=== PATIENT | female | born 1950 | race Hispanic/Latino ===

== ENCOUNTER → 2017-08-03 | Day surgery (SDC) | payer MEDICARE, OTHER ==
[2017-08-02 14:59] LABS: BASOPHILS % 0.6 % (0.0-1.0); EOSINOPHILS # (AUTO) 0.1 (0.0-0.4); HEMATOCRIT 38.5 % (34.2-44.1); HEMOGLOBIN 13.5 g/dL (12.0-16.0); LYMPHOCYTES # (AUTO) 1.6 (1.0-3.2); LYMPHOCYTES % 23.2 % (18.0-39.1); MEAN CORPUSCULAR HEMOGLOBIN 31.6 pg (28-32); MEAN CORPUSCULAR HGB CONC 35.1 g/dL (31-35); MEAN CORPUSCULAR VOLUME 90.2 fL (81-99); MONOCYTES # (AUTO) 0.3 (0.2-0.8); MONOCYTES % 4.9 % (4.4-11.3); NEUTROPHILS # (AUTO) 4.9 (2.1-6.9); PLATELET COUNT 180 x10e3/uL (140-360); RED BLOOD COUNT 4.27 x10e6/uL (3.6-5.1)
[~2017-08-03] MED LIST: ATORVASTATIN CA20 MG PO; FENOFIBRATE145 MG PO; FENTANYL CITRATE/PF 100MCG/2 ML INJ ONE; GLUCOVANCE 5-51 EACH PO; KETOROLAC TROME10 MG PO; LEXAPRO10 MG PO; LIDOCAINE HCL 2% LOCAL INJ 5 ML SDV VIAL INJ ONE; LISINOPRIL10 MG PO; LORAZEPAM0.5 MG PO; MIDAZOLAM HCL 2 MG/2 ML VIAL ONE; PROPOFOL IV EMULSION 10 MG/ML 50 ML VIAL ONE; TENORETIC 50 T1 EACH PO
== END | disposition home or self-care (01) ==
LOC: OR 06:52
PROVIDERS: ATTEND Internal Medicine Gastroenterology
DX: Z12.11 Encounter for screening for malignant neoplasm of colon (principal); K29.50 Unspecified chronic gastritis without bleeding; K57.30 Diverticulosis of large intestine without perforation or abscess without bleeding; K44.9 Diaphragmatic hernia without obstruction or gangrene; K64.8 Other hemorrhoids; E11.9 Type 2 diabetes mellitus without complications; I10 Essential (primary) hypertension; E78.5 Hyperlipidemia, unspecified; F32.9 Major depressive disorder, single episode, unspecified; Z01.812 Encounter for preprocedural laboratory examination; Z01.810 Encounter for preprocedural cardiovascular examination
CPT/HCPCS: 43239; G0121; 36415; 45378; 82948; 85025; 93005; J2001; J2250

== ENCOUNTER → 2017-12-13 | Outpatient (CLI) | payer MEDICARE, OTHER ==
[~2017-12-13] MED LIST changes: -FENTANYL CITRATE/PF 100MCG/2 ML INJ ONE; -LIDOCAINE HCL 2% LOCAL INJ 5 ML SDV VIAL INJ ONE; -MIDAZOLAM HCL 2 MG/2 ML VIAL ONE; -PROPOFOL IV EMULSION 10 MG/ML 50 ML VIAL ONE
--- NOTE | 2017-12-13 19:16 | Diagnostic Imaging Report ---
Solid-phase gastric emptying study Reason for examination: 67 F with chronic bloating The protocol used for this study is based on the Consensus Recommendations for Gastric Scintigraphy by the [place] [employer] and the Society of Nuclear Medicine. Clinical information: The patient is diabetic. Blood sugar this morning was 240 mg/dL. The patient has not had previous gastrointestinal surgery other than cholecystectomy in 2002. The patient is not on any medications expected to affect gastric motility. The patient has been fasting for at least 6 hours prior to this exam. Radiopharmaceutical: Tc-99m sulfur colloid 1 mCi Report: The radiopharmaceutical was added to 1/2 cup egg whites that were then prepared and served with 2 pieces of white bread toasted, 30 grams of jam and 4 ounces of water. The patient took the meal orally without difficulty. Images were obtained of the abdomen in the anterior and posterior projections at 10 minutes post the meal and at 1and 2 hours. Uptake was determined from the geometric mean of the anterior and posterior counts and the counts were corrected for decay of the radiolabel. The percent gastric retention of the labeled meal at: 1 hour was 60% (normal 30-90%) 2 hours was 32% (normal <60%; if less than 35% at 2 hours, study is normal) 3-hour and 4-hour measurements were not obtained because the gastric retention was less than 35% at 2 hours. Impression: The pattern of gastric emptying is normal. Scan findings do not support the clinical diagnosis of gastroparesis. Signed by: Dr. Lisa Main M.D. on 12/13/2017 7:12 PM
== END ==
LOC: NM 08:18
PROVIDERS: ATTEND Internal Medicine Gastroenterology
DX: R10.13 Epigastric pain (principal); R14.0 Abdominal distension (gaseous); I10 Essential (primary) hypertension; E66.3 Overweight; Z71.3 Dietary counseling and surveillance
CPT/HCPCS: 78264; A9541

== ENCOUNTER 2017-12-25 20:29 | Emergency (ER) | payer MEDICARE, OTHER ==
--- OUTSIDE RECORDS SUMMARY | 2017-12-25 20:32 | XMS REPORT ---
Author Author [facility] Address Unknown Phone Unavailable Care Team Providers Care Hand Spinner Name Role Phone SERGIO AGUILERA Unavailable Unavailable URIBERAISAHEJAI Unavailable Unavailable Problems This patient has no known problems. Allergies, Adverse Reactions, Alerts This patient has no known allergies or adverse reactions. Medications This patient has no known medications. Results Test Description Test Time Test Comments Text Results Atomic Results Result Comments GASTRIC EMPTYING [place] [address] Patient Name: ERICA MAGALLANES MR #: [id number] : 1950 Age/Sex: 67/F Req #: [id number] [facility] Physician: Ordered by: SERGIO AGUILERA MD Report #: [id number] Location: [place] Room/Bed: Procedure: [id number] NM/GASTRIC EMPTYING Exam Date: 12/13/17 Exam Time: 0900 REPORT STATUS: Signed Solid-phase gastric emptying study Reason for examination: 67 F with chronic bloating The protocol used for this study is based on the Consensus Recommendations for Gastric Scintigraphy by the [place] [employer] and the Society of Nuclear Medicine. Clinical information: The patient is diabetic. Blood sugar this morning was 240 mg/dL. The patient has not had previous gastrointestinal surgery other than cholecystectomy in 2002. The patient is not on any medications expected to affect gastric motility. The patient has been fasting for at least 6 hours prior to this exam. Radiopharmaceutical : Tc-99m sulfur colloid 1 mCi Report: The radiopharmaceutical was added to 1/2 cup egg whites that were then prepared and served with 2 pieces of white bread toasted, 30 grams of jam and 4 ounces of water. The patient took the meal orally without difficulty. Images were obtained of the abdomen in the anterior and posterior projections at 10 minutes post the meal and at 1and 2 hours. Uptake was determined from the geometric mean of the anterior and posterior counts and the counts were corrected for decay of the radiolabel. The percent gastric retention of the labeled meal at: 1 hour was 60% (normal 30-90%) 2 hours was 32% (normal <60%; if less than 35% at 2 hours, study is normal) 3-hour and 4-hour measurements were not obtained because the gastric retention was less than 35% at 2 hours. Impression: The pattern of gastric emptying is normal. Scan findings do not support the clinical diagnosis of gastroparesis. Signed by: Dr. Bassam Main M.D. on 12/13/2017 7:12 PM Dictated By: BASSAM MAIN MD 11 Transcribed By: SHARONA on 12/13/171911 COPY TO: SERGIO AGUILERA MD MAMMOGRAPHY DIGITAL [place] [address] Patient Name: ERICA MAGALLANES MR #: [id number] : 1950 Age/Sex: 66/F Req #: [id number] [facility] Physician: Ordered by: VANDA URIBE MD Report #: [id number] Location: [facility] Room/Bed: Procedure: [id number] MG/MAMMOGRAPHY DIGITAL SCR BILAT Exam Date: 05/26/17 Exam Time: 1308 REPORT STATUS: Signed # [id number] - [id number] #BILATERAL DIGITAL SCREENING MAMMOGRAM WITH CAD: 05/26 CLINICAL: Routine screening. Comparison is made to exam dated: mammogram - [facility]. Current study contains 4 films. The tissue of both breasts is heterogeneously dense. This may lower the sensitivity of mammography. Current study was also evaluated with a Computer Aided Detection (CAD) system. There are benign vascular calcifications and calcifications in both breasts. No significant masses, calcifications, or other findings are seen in either breast. There has been no significant interval change. IMPRESSION: BENIGN There is no mammographic evidence of malignancy. A 1 year screening mammogram is recommended. The patient will be notified by letter of the results. Rosalie rubin/sandie:06/06/2017 10:07:39 Probation Officer: Bassam RIVERA(R)(M), [facility] letter sent: Compared to Prior B9 Mammogram BI-RADS: 2 Benign Dictated By: ROSALIE DEJESUS DO 1007 COPY TO: VANDA URIBE MD BONE DXA DUAL ENERGY [place] [address] Patient Name: ERICA MAGALLANES MR #: [id number] : 1950 Age/Sex: 66/F Req #: [id number] [facility] Physician: Ordered by: VANDA URIBE MD Report #: [id number] Location: MAMMO Room/Bed: Procedure: [id number] DX/BONE DXA DUAL ENERGY Exam Date: Exam Time: REPORT STATUS: Signed EXAM: DXA BONE DENSITY INDICATIONS: Osteoporsis screening COMPARISON: None. FINDINGS: Left femoral neck bone mineral density (BMD) (g/cm2): 0.722 Femur T-score ( standard deviation relative to young adult mean BMD): -1.3 Femur Z-score (standard deviation relative to age-matched control group): 0.4 Lumbar bone mineral density (BMD) (g/cm2): 0.829 Lumbar T-score (standard deviation relative to young adult mean BMD): -2 Lumbar Z-score (standard deviation relative to age-matched control group): 0 CONCLUSION: 1. WHO mineralization ossification: Low bone mass (osteopenia). 2. 10 year major osteoporotic fracture risk is 5%, with a hip fracture risk of 0.5 %. World Health Organization Classification: *The Z-score is provided for informational purposes. The T-score is preferable for clinical decisions. When comparing exams, a change of >4% is considered statistically significant. RECOMMENDATIONS: Normal T low bone mass: Calcium supplementation, daily multiple vitamins, and adequate exercise as preventive measures against osteoporosis. Osteoporosis T Severe Osteoporosis: In addition to the above, pharmacologic therapy. Dictated by: Trever Barragan M.D. on 05/26/2017 at 14:06 Electronically approved by: Trever Barragan M.D. on 05/26/2017 at 14:06 Dictated By: TREVER BARRAGAN MD [id number] Transcribed By: JOVAN on 05/26/178 COPY TO: VANDA URIBE MD
== END 2017-12-25 20:47 | disposition short-term general hospital (02) ==
LOC: ER 20:29
DX: Z53.21 Procedure and treatment not carried out due to patient leaving prior to being seen by health care provider (principal)

== ENCOUNTER → 2018-11-13 | Outpatient (CLI) | payer OTHER ==
--- NOTE | 2018-11-13 10:04 | Diagnostic Imaging Report ---
RIGHT SHOULDER - 2 Images HISTORY: Pain COMPARISON: None available. FINDINGS: Bones: No acute displaced fracture. No aggressive osseous lesion. Joints: Moderate degenerative changes of the, clavicle or joint. Soft tissues: The soft tissues appear unremarkable. IMPRESSION: 1. No acute radiographic abnormality. 2. Moderate acromioclavicular osteoarthrosis. Signed by: Dr. Gregorio Lam D.O., M.M.M. on 11/13/2018 10:01 AM
== END ==
LOC: RAD 08:36
DX: M25.511 Pain in right shoulder (principal)

== ENCOUNTER → 2020-05-06 | Outpatient (CLI) | payer MEDICARE, OTHER | LOC: MAMMO 09:38 | DX: Z12.31 Encounter for screening mammogram for malignant neoplasm of breast (principal) | CPT/HCPCS: 77067 ==

== ENCOUNTER → 2021-06-18 | Day surgery (SDC) | payer MEDICARE, OTHER ==
[2021-06-15 13:51] LABS: BASOPHILS % 0.9 % (0.0-1.0); EOSINOPHILS # (AUTO) 0.1 (0.0-0.4); EOSINOPHILS % 2.1 % (0.0-6.0); HEMATOCRIT 34.3 % (34.2-44.1); HEMOGLOBIN 11.3 g/dL (12.0-16.0); LYMPHOCYTES # (AUTO) 0.9 (1.0-3.2); LYMPHOCYTES % 22.2 % (18.0-39.1); MEAN CORPUSCULAR HEMOGLOBIN 30.9 pg (28-32); MEAN CORPUSCULAR HGB CONC 32.9 g/dL (31-35); MEAN CORPUSCULAR VOLUME 93.7 fL (81-99); MONOCYTES # (AUTO) 0.4 (0.2-0.8); MONOCYTES % 8.5 % (4.4-11.3); NEUTROPHILS # (AUTO) 2.8 (2.1-6.9); NEUTROPHILS % 66.3 % (38.7-80.0); PLATELET COUNT 243 x10e3/uL (140-360); RED BLOOD COUNT 3.66 x10e6/uL (3.6-5.1); RED CELL DISTRIBUTION WIDTH 13.2 % (11.7-14.4)
[~2021-06-18] MED LIST changes: +FENTANYL CITRATE/PF 100MCG/2 ML INJ ONE; +GLUCAGON FOR INJ 1 MG VIAL ONE; +HYOSCYAMINE SULFATE 0.5 MG/ML INJ ONE; +LEVOTHYROXINE50 MCG PO; +LIDOCAINE HCL 2% LOCAL INJ 5 ML SDV VIAL INJ ONE; +PROPOFOL IV EMULSION 10 MG/ML 20 ML VIAL ONE
[2021-06-18 11:10] VITALS: BP 138/68
[2021-06-18 12:04] LABS: WBC,FECAL (FECAL LACTOFERRIN) NEGATIVE (NEGATIVE)
[2021-06-18 14:54] LABS: C DIFFICILE TOXIN A&B AMP PROB NEGATIVE (NEGATIVE)
== END | disposition home or self-care (01) ==
LOC: OR 08:09
PROVIDERS: ATTEND Internal Medicine Gastroenterology
DX: K29.50 Unspecified chronic gastritis without bleeding (principal); D12.4 Benign neoplasm of descending colon; K25.9 Gastric ulcer, unspecified as acute or chronic, without hemorrhage or perforation; K52.9 Noninfective gastroenteritis and colitis, unspecified; K22.89 Other specified disease of esophagus; K57.30 Diverticulosis of large intestine without perforation or abscess without bleeding; K62.89 Other specified diseases of anus and rectum; K59.00 Constipation, unspecified; E11.9 Type 2 diabetes mellitus without complications; E03.9 Hypothyroidism, unspecified; I10 Essential (primary) hypertension; E78.5 Hyperlipidemia, unspecified; F32.A Depression, unspecified; F41.9 Anxiety disorder, unspecified; Z01.810 Encounter for preprocedural cardiovascular examination; Z01.812 Encounter for preprocedural laboratory examination; Z20.822 Contact with and (suspected) exposure to COVID-19; Z79.84 Long term (current) use of oral hypoglycemic drugs; Z68.27 Body mass index [BMI] 27.0-27.9, adult
CPT/HCPCS: 36415 ×2; 43239; 45380; 45385; 82948; 83630; 83993; 85025; 87045; 87177; 87328; 87493; 93005; C9113; J1610; J1980; J2001; J2704; J3010; U0002; 45378

== ENCOUNTER → 2021-11-01 | Day surgery (SDC) | payer MEDICARE, OTHER ==
[2021-10-29 13:21] LABS: BASOPHILS % 0.7 % (0.0-1.0); EOSINOPHILS # (AUTO) 0.1 (0.0-0.4); EOSINOPHILS % 1.5 % (0.0-6.0); HEMATOCRIT 34.9 % (34.2-44.1); HEMOGLOBIN 11.8 g/dL (12.0-16.0); LYMPHOCYTES # (AUTO) 1.1 (1.0-3.2); LYMPHOCYTES % 20.1 % (18.0-39.1); MEAN CORPUSCULAR HEMOGLOBIN 31.6 pg (28-32); MEAN CORPUSCULAR HGB CONC 33.8 g/dL (31-35); MEAN CORPUSCULAR VOLUME 93.6 fL (81-99); MONOCYTES # (AUTO) 0.3 (0.2-0.8); MONOCYTES % 6.2 % (4.4-11.3); NEUTROPHILS # (AUTO) 3.9 (2.1-6.9); NEUTROPHILS % 71.1 % (38.7-80.0); PLATELET COUNT 205 x10e3/uL (140-360); RED BLOOD COUNT 3.73 x10e6/uL (3.6-5.1)
[~2021-11-01] MED LIST changes: -GLUCAGON FOR INJ 1 MG VIAL ONE; -HYOSCYAMINE SULFATE 0.5 MG/ML INJ ONE; +MIDAZOLAM HCL 2 MG/2 ML VIAL ONE
[2021-11-01 14:07] VITALS: BP 110/60
== END | disposition home or self-care (01) ==
LOC: ENDO 10:59
PROVIDERS: ATTEND Internal Medicine Gastroenterology
DX: K22.2 Esophageal obstruction (principal); K25.9 Gastric ulcer, unspecified as acute or chronic, without hemorrhage or perforation; K44.9 Diaphragmatic hernia without obstruction or gangrene; K21.9 Gastro-esophageal reflux disease without esophagitis; R19.7 Diarrhea, unspecified; Z71.3 Dietary counseling and surveillance; E11.9 Type 2 diabetes mellitus without complications; I10 Essential (primary) hypertension; E78.5 Hyperlipidemia, unspecified; E03.9 Hypothyroidism, unspecified; F32.A Depression, unspecified; Z01.810 Encounter for preprocedural cardiovascular examination; Z01.812 Encounter for preprocedural laboratory examination; Z20.822 Contact with and (suspected) exposure to COVID-19; Z79.84 Long term (current) use of oral hypoglycemic drugs; Z79.899 Other long term (current) drug therapy; Z68.27 Body mass index [BMI] 27.0-27.9, adult
CPT/HCPCS: 36415 ×2; 43239; 43450; 82948; 85025; 93005; C9113; J2001; J2250; J2704; J3010; U0002

== ENCOUNTER 2025-06-02 19:06 | Emergency (ER) | payer MEDICARE ==
[~2025-06-02] VITALS: Ht 152.4 cm; Wt 66.7 kg
[~2025-06-02 19:06] MED LIST changes: +ACTOS15 MG PO; +ARICEPT5 MG PO; +CETIRIZINE HCL10 MG PO; +CLONIDINE HCL0.1 MG PO; +FAMOTIDINE20 MG PO; -FENTANYL CITRATE/PF 100MCG/2 ML INJ ONE; +FEROSUL325 MG PO; +GLIPIZIDE-METF1 EAC2 PO; +JANUVIA100 MG PO; +JARDIANCE25 MG PO; +LEVOTHYROXINE75 MCG PO; +LEXAPRO20 MG PO; -LIDOCAINE HCL 2% LOCAL INJ 5 ML SDV VIAL INJ ONE; +LOSARTAN POTAS100 MG PO; +MACROBID 100 M100 MG PO; +METOPROLOL TART50 MG PO; -MIDAZOLAM HCL 2 MG/2 ML VIAL ONE; +OMEPRAZOLE40 MG PO; +ONDANSETRON ODT4 MG PO; -PROPOFOL IV EMULSION 10 MG/ML 20 ML VIAL ONE; +PROTONIX20 MG PO; +TRICOR145 MG PO; +VITAMIN D325 MCG PO; +[UNRECOGNIZED DRUG - OTHER] PO
[2025-06-02] MEDS ORDERED: AUGMENTIN 500-1 EACH PO (21:21)
[2025-06-02 21:45] VITALS: PULSE 61; RESP 18; TEMP 98
[2025-06-02 22:11] VITALS: BP 171/77; PULSE 61; RESP 18; TEMP 98; O2SAT 98
== END 2025-06-02 21:48 | disposition home or self-care (01) ==
LOC: FSED 19:08
DX: R03.0 Elevated blood-pressure reading, without diagnosis of hypertension (principal); H11.32 Conjunctival hemorrhage, left eye; J01.90 Acute sinusitis, unspecified; R51.9 Headache, unspecified; I10 Essential (primary) hypertension; E11.9 Type 2 diabetes mellitus without complications; E78.5 Hyperlipidemia, unspecified; E03.9 Hypothyroidism, unspecified; E78.00 Pure hypercholesterolemia, unspecified; K21.9 Gastro-esophageal reflux disease without esophagitis
CPT/HCPCS: 70450; 99284